=== PATIENT | female | born 1985 | race Caucasian/White ===

== ENCOUNTER 2023-01-20 08:00 | Inpatient (IN) | payer BC ==
[2023-01-20 10:06] VITALS: BMI 45.4
[2023-01-23] MEDS ORDERED: LACTATED RINGERS 1,000 ML IV ONE (08:01)
[2023-01-23] MEDS ORDERED: ceFAZolin 3 GM in SODIUM CHLORIDE 0.9% 100 ML IVPB ONE (08:01)
[2023-01-23] MEDS ORDERED: OXYTOCIN 10 UNIT/ML 1 ML VIAL IM PRN (08:01)
[2023-01-23] MEDS ORDERED: CARBOPROST TROMETHAMINE 250 MCG/ML 1 ML AMP IM PRN (08:01)
[2023-01-23] MEDS ORDERED: miSOPROStoL 200 MCG TAB PO PRN (08:01)
[2023-01-23] MEDS ORDERED: TRANEXAMIC 1,000 MG/100ML-NACL 1,000 MG in EMPTY BAG 1 BAG IV PRN (08:01)
[2023-01-23] MEDS ORDERED: METHYLERGONOVINE 0.2 MG/ML 1 ML AMP IM PRN (08:01)
[2023-01-23] MEDS ORDERED: CITRIC ACID-SODIUM CITRATE 15 ML CUP PO ONE (08:01)
[2023-01-23 08:51] LABS: Basophils % (A) 0 %; Eosinophils # (A) 0.2 k/uL (0-0.7); Eosinophils % (A) 2 %; HCT 43.3 % (34.0-46.0); HGB 14.9 gm/dL (11.4-16.0); Lymphocytes # (A) 2.6 k/uL (1.0-4.8); Lymphocytes % (A) 24 %; MCH 30.7 pg (25.0-35.0); MCHC 34.3 g/dL (31.0-37.0); MCV 89.4 fL (80.0-100.0); Mean Platelet Volume 8.4; Monocytes # (A) 0.6 k/uL (0-1.0); Monocytes % (A) 5 %; Neutrophils # (A) 7.2 k/uL (1.3-7.7); Neutrophils % (A) 67 %; Platelet Count 234 k/uL (150-450); RBC 4.84 m/uL (3.80-5.40); RDW 14.6 % (11.5-15.5); WBC 10.7 k/uL (3.8-10.6)
--- NOTE | 2023-01-23 09:26 | P.HPOB ---
History of Present Illness H&P Date: 01/23/23 Chief Complaint: Scheduled repeat section Ms. Hernandez is a 38 year old at 39 weeks and 3 days with EDC of 01/27/2023 (by LMP consistent with 7 week US) who presents to labor and delivery for repeat scheduled section. The has been complicated by advanced maternal age and excessive maternal weight gain of 47 pounds throughout the . At 32 weeks, the fetus was measuring in the 67%ile for growth. Obstetric history: 1 FTCS secondary to non-reassuring heart tones Maternal workup: Blood type A positive, antibody negative, rubella immune, VDRL non-reactive, HBsAg negative, HIV negative, HCV Ab negative, 1 hour GTT elevated, 3 hour GTT within normal limits, gonorrhea negative, chlamydia negative, GBS negative. Past medical history: endometriosis, infertility, hydrosalpinx Past surgical history: x1, laparoscopic left partial salpingectomy Past Medical History Past Medical History: No Reported History History of Any Multi-Drug Resistant Organisms: None Reported Past Surgical History: Section Additional Past Surgical History / Comment(s): REMOVAL LT FALLOPIAN TUBE AND CYST 2017 Past Anesthesia/Blood Transfusion Reactions: No Reported Reaction Past Psychological History: No Psychological Hx Reported Smoking Status: Never smoker Past Alcohol Use History: None Reported Past Drug Use History: None Reported - Past Family History Mother Family Medical History: No Reported History Medications and Allergies Home Medications Medication Instructions Recorded Confirmed Type Vit No.179/Iron/Folic 1 each PO DAILY 01/20/23 01/23/23 History [ Tablet] Allergies Allergy/AdvReac Type Severity Reaction Status Date / Time No Known Allergies Allergy Verified 01/23/23 08:00 Exam Vital Signs Temp Pulse Resp BP Pulse Ox 01/23/23 08:00 97.4 F L 97 16 139/79 97 Intake and Output 01/22/23 01/23/23 01/23/23 22:59 06:59 14:59 Other: Weight 123.377 kg Focused physical exam is performed. This is a in no apparent distress. Breathing is non-labored. Abdomen is gravid and non-tender. Extremities are non- tender and non-edematous. heart tones are reactive and reassuring on NST. Results Result Diagrams: 01/23/23 08:15 Abnormal Lab Results - Last 24 Hours (Table) 01/23/23 Range/Units 08:15 WBC 10.7 H (3.8-10.6) k/uL Assessment and Plan Assessment: 38 year old at 39 weeks and 3 days presenting for scheduled repeat section Plan: Admit, NPO, mIVF, IV pre-surgical antibiotics, protocol. Time with Patient: Less than 30
[2023-01-23] MEDS: LACTATED RINGERS 1,000 ML IV SCH ×4 (09:46→20:38)
[2023-01-23] MEDS ORDERED: MORPHINE SULFATE (PF) 0.3 MG/0.3 ML SYR ONE (10:00)
[2023-01-23] MEDS ORDERED: OXYTOCIN 30 UNITS/500 ML NS BAG IV ONE (10:00)
[2023-01-23] MEDS ORDERED: ONDANSETRON 4 MG/2 ML VIAL ONE (10:00)
[2023-01-23] MEDS ORDERED: KETOROLAC 30 MG/ML 1 ML VIAL ONE (10:00)
[2023-01-23] MEDS ORDERED: ePHEDrine 50 MG/ML 1 ML VIAL ONE (10:00)
[2023-01-23] MEDS ORDERED: HYDROmorphone 0.5 MG/0.5 ML SYRINGE IVP PRN (10:42)
[2023-01-23] MEDS ORDERED: diphenhydrAMINE 50 MG/ML 1 ML VIAL IVP PRN ×3 (10:42→11:25)
[2023-01-23] MEDS ORDERED: ONDANSETRON 4 MG/2 ML VIAL IVP PRN ×2 (10:42→11:25)
[2023-01-23] MEDS ORDERED: KETOROLAC 15 MG/ML 1 ML VIAL IVP PRN (10:42)
[2023-01-23] MEDS ORDERED: NALOXONE 0.4 MG/ML 1 ML VIAL IV PRN ×2 (10:42→11:25)
--- NOTE | 2023-01-23 11:24 | P.OP ---
Date of Procedure: 01/23/23 Preoperative Diagnosis: 1. 39 week IUP 2. History of prior section 3. No desire for TOLAC 4. Advanced Maternal Age 5. Short interval 6. Excessive Maternal Weight Gain Postoperative Diagnosis: Same Procedure(s) Performed: Repeat Lower Transverse Section Implants: None Anesthesia: spinal Surgeon: Lissette Quinn Metal Polisher And Buffer Apprentice #1: Deepali Bui Estimated Blood Loss (ml): 380 IV fluids (ml): 600 Urine output (ml): 200 Pathology: none sent Condition: stable Disposition: floor Indications for Procedure: This is a 38 year old at 39 weeks and 3 days who presents for scheduled repeat section. The risks, benefits, and alternatives to section were discussed with the patient including risk of bleeding, infection, damage to surrounding structures including bladder/bowels/ureters, and post- operative VTE. The patient understands these risks and desires to proceed with section. Operative Findings: Colorless amniotic fluid. Viable female in right occiput transverse presentation. Weight 3510 grams. Apgars 8 and 9 at 1 and 5 minutes, respectively. Normal uterus, fallopian tubes, and ovaries. Description of Procedure: The patient was taken to the operating room where spinal anesthesia was found to be adequate. 2 grams of Ancef were given for infection prophylaxis. She was prepared and draped in the dorsal supine position with a leftward tilt. A Pfannenstiel skin incision was made with the scalpel. The incision was carried down to the fascia with a bovie. The fascia was incised and extended laterally with Munoz scissors. The superior aspect of the fascia was grasped with Jacob clamps. The underlying rectus muscle was dissected off sharply with Munoz scissors. In a similar fashion, the inferior aspect of the fascia was elevated with Jacob clamps and the rectus muscle and pyramidalis were dissected off. Excellent hemostasis was achieved with the bovie. The rectus muscle was in the midline down to the level of the pubic symphysis. Pre- peritoneal fatty tissue was bluntly dissected to expose the peritoneum. The peritoneum was found to be free of adherent bowel and entered sharply with Munoz scissors. The peritoneal incision was extended superiorly and inferiorly to the bladder reflection with good visualization of the bladder. The bladder blade was inserted and vesicouterine peritoneum was identified. Intraabdominal survey revealed scant, clear peritoneal fluid and the thinned-out lower uterine segment. The vesicouterine peritoneum was opened with scissors and the bladder flap was developed. The bladder blade was repositioned to keep the bladder out of the operative field. The lower uterine segment was incised with a scalpel. The amniotic sac was ruptured with an Allis clamp and clear fluid was noted. The uterine incision was extended bluntly with lateral and upward traction. The fetus was in right occiput transverse position. The head was elevated out of the pelvis with special attention paid to avoid using the uterine incision as a fulcrum. Gentle fundal pressure was applied once the head was brought into the incision. The infant was delivered with no difficulty. The mouth and nose were suctioned with a bulb. The cord was clamped and cut. was noted to be spontaneously crying. The was handed off to the bar manager. IV oxytocin was initiated to facilitate uterine contractions. The placenta was delivered intact with manual massage of uterine fundus. The uterus was then exteriorized and the inside of the uterus was gently wiped with a lap sponge to assure complete removal of placental membranes. The uterine incision was closed with a 0-Polysorb suture in a running locked fashion. A second imbricating layer of 0- Polysorb was placed along the incision. The ovaries and tubes were found to be normal. The uterus, tubes, and ovaries were then gently returned to the abdominal cavity. The blood clots and fluid were wiped out of the abdomen and pelvis with moist laparotomy sponges. The pelvis was copiously suction irrigated.The uterine incision was reinspected and excellent hemostasis was noted. The fascial layer was closed with a 0-Vicryl suture. The subcutaneous tissue was reapproximated with 2-0 Plain Gut. The skin was closed with 4-0 Monocryl in a subcuticular fashion. The patient tolerated the procedure well. All the counts were correct times two. The patient was taken to the recovery room in a stable condition.
[2023-01-23] MEDS ORDERED: SIMETHICONE 80 MG CHEWABLE PO PRN (11:25)
[2023-01-23] MEDS ORDERED: diphenhydrAMINE 25 MG CAP PO PRN (11:25)
[2023-01-23] MEDS ORDERED: ZOLPIDEM 5 MG TAB PO PRN (11:25)
[2023-01-23] MEDS ORDERED: diphenhydrAMINE 50 MG CAP PO PRN (11:25)
[2023-01-23] MEDS ORDERED: LANOLIN CREAM 5 GM TUBE TOPICAL PRN (11:25)
[2023-01-23] MEDS: ACETAMINOPHEN TAB 500 MG TAB PO SCH (16:50)
[2023-01-23] MEDS: METOCLOPRAMIDE 5 MG/ML 2 ML VIAL IVP PRN (18:47)
[2023-01-23] MEDS: KETOROLAC 15 MG/ML 1 ML VIAL IVP SCH (18:47)
[2023-01-23] MEDS: SENNOSIDES-DOCUSATE SODIUM 1 EACH TAB PO SCH (20:38)
[2023-01-23] MEDS: IBUPROFEN 600 MG TAB PO SCH (22:37)
[2023-01-24] MEDS: KETOROLAC 15 MG/ML 1 ML VIAL IVP SCH ×3 (00:13→12:00)
[2023-01-24] MEDS: METOCLOPRAMIDE 5 MG/ML 2 ML VIAL IVP PRN (01:29)
[2023-01-24] MEDS: ACETAMINOPHEN TAB 500 MG TAB PO SCH ×5 (01:39→20:00)
[2023-01-24] MEDS: LACTATED RINGERS 1,000 ML IV SCH ×5 (01:39→17:19)
[2023-01-24 07:19] LABS: Basophils % (A) 0 %; Eosinophils # (A) 0.2 k/uL (0-0.7); Eosinophils % (A) 2 %; HCT 45.5 % (34.0-46.0); HGB 14.9 gm/dL (11.4-16.0); Lymphocytes % (A) 27 %; MCH 29.8 pg (25.0-35.0); MCHC 32.7 g/dL (31.0-37.0); MCV 91.1 fL (80.0-100.0); Mean Platelet Volume 8.2; Monocytes # (A) 0.7 k/uL (0-1.0); Monocytes % (A) 6 %; Neutrophils # (A) 6.7 k/uL (1.3-7.7); Neutrophils % (A) 62 %; Platelet Count 238 k/uL (150-450); RBC 4.99 m/uL (3.80-5.40); RDW 14.6 % (11.5-15.5); WBC 10.8 k/uL (3.8-10.6)
--- NOTE | 2023-01-24 08:27 | P.PNOBGPC ---
Subjective - Subjective Principal diagnosis: s/p repeat section Interval history: The patient is doing well this morning and had no acute events overnight. She has no complaints this morning. She reports minimal lochia, passing flatus, voiding without difficulty, ambulating, and eating/drinking without nausea or vomiting. She is her without difficulty. She denies chest pain, shortness of breathing, fevers, or chills overnight. She denies pain or swelling in the legs. Patient reports: Reports appetite normal, Reports voiding normally, Reports pain well controlled, Reports ambulating normally [place]: doing well Objective - Vital Signs Latest vital signs: Vital Signs Temp Pulse Resp BP Pulse Ox 01/24/23 07:00 16 98 01/24/23 05:00 16 01/24/23 04:00 97.9 F 66 16 108/73 95 01/24/23 03:00 16 97 01/24/23 01:00 16 97 01/24/23 00:00 98.1 F 67 16 107/71 97 01/23/23 23:00 16 96 01/23/23 20:36 16 01/23/23 20:00 97.9 F 61 16 94/68 96 01/23/23 19:00 16 01/23/23 17:00 16 01/23/23 15:46 98.1 F 66 16 116/67 96 01/23/23 15:41 96 01/23/23 15:00 16 01/23/23 13:42 16 01/23/23 13:06 97.5 F L 63 16 92/55 99 01/23/23 12:36 69 16 96/50 99 01/23/23 12:06 73 16 105/54 97 01/23/23 11:40 16 96 01/23/23 11:36 70 16 104/51 96 01/23/23 11:21 71 16 100/49 95 01/23/23 11:06 97.9 F 68 16 103/57 96 01/23/23 10:42 16 96 Intake and Output 01/23/23 01/24/23 01/24/23 22:59 06:59 14:59 Output Total 700 300 200 Balance -700 -300 -200 Output: Urine 400 300 200 Emesis 300 Other: # Voids 1 1 - Exam Extremities: Present: normal Abdomen: Present: normal appearance, soft Incision: Present: normal, dry, intact Uterus: Present: normal, firm - Labs Labs: Abnormal Lab Results - Last 24 Hours (Table) 01/23/23 01/24/23 Range/Units 08:15 07:03 WBC 10.7 H 10.8 H (3.8-10.6) k/uL Assessment and Plan Assessment: 38 year old now POD#1 s/p repeat section Plan: 1. Postoperative. Patient meeting all post-operative milestones appropriately. 2. Viable female . Doing well at bedside. Dispo: Anticipate discharge home tomorrow morning.
--- NOTE | 2023-01-24 08:50 | P.PN ---
Progress Note - Text Progress Note Date: 01/24/23 Patient seen sitting on the bedside and doing well. She is POD #1 C/S under SAB with intrathecal duramorph for post-operative pain management. She reports nausea/vomitting last night but that is resolved and she is without complaint. Patient denies back pain, fever/chills, headache and itching. Will follow up as indicated.
--- NOTE | 2023-01-24 08:54 | P.PN ---
Progress Note - Text Progress Note Date: 01/24/23 Postoperative day 1 status post section under spinal anesthesia and in trathecal Duramorph for postoperative analgesia.The patient is doing well, there is mild generalized skin itching. There are no other anesthesia related complications. The patient denies any paresthesia or weakness in the lower extremities. Patient denies any headache. Further management as per the patient primary team.
[2023-01-24] MEDS: SENNOSIDES-DOCUSATE SODIUM 1 EACH TAB PO SCH (09:40)
[2023-01-24] MEDS: IBUPROFEN 600 MG TAB PO SCH ×2 (09:41→16:02)
[2023-01-25] MEDS: IBUPROFEN 600 MG TAB PO SCH ×3 (02:45→04:11)
[2023-01-25] MEDS: SENNOSIDES-DOCUSATE SODIUM 1 EACH TAB PO SCH ×2 (02:45→08:02)
[2023-01-25] MEDS: ACETAMINOPHEN TAB 500 MG TAB PO SCH ×2 (04:31→10:46)
[2023-01-25 08:14] VITALS: BP 120/80; PULSE 88; RESP 15; TEMP 97.9
--- NOTE | 2023-01-25 08:20 | P.DS ---
Providers Date of admission: 01/23/23 07:40 Expected date of discharge: 01/25/23 Attending physician: Lissette Quinn MD Primary care physician: Stated None Hospital Course: This is a 38-year-old now post op day #2 status post a repeat section who is doing well this morning and desires discharge home. The patient is doing well this morning and had no acute events overnight. She has no complaints this morning. She reports minimal lochia, passing flatus, voiding without difficulty, ambulating, and eating/drinking without nausea or vomiting. doing well at bedside, is formula feeding. She denies chest pain, shortness of breathing, fevers, or chills overnight. She denies pain or swelling in the legs. Postoperative restrictions are reviewed with the patient including pelvic rest for 6 weeks, no lifting heavier than 15 pounds for 6 weeks. The patient is encouraged to call the office if she experiences any heavy bleeding, foul-smelling discharge, breast complaints, or any if she has any other concerns. She will follow up in the office with in 2 weeks for postoperative exam. She declines oxycodone prescription at discharge and will go home with Motrin and Tylenol. All questions are answered. Assessment: 38 year old POD#2 s/p repeat section Patient Condition at Discharge: Good Plan - Discharge Summary Discharge Rx Participant: Yes New Discharge Prescriptions: No Action Vit No.179/Iron/Folic [ Tablet] 1 each PO DAILY Discharge Medication List Vit No.179/Iron/Folic [ Tablet] 1 each PO DAILY 01/20/23 [History]
== END 2023-01-25 09:30 | disposition home or self-care (01) | DRG 788 ==
LOC: 4FBP 01-23 07:40
PROVIDERS: ADMIT Obstetrics & Gynecology; ATTEND Obstetrics & Gynecology
PROC: 10D00Z1 Extraction of Products of Conception, Low, Open Approach (ICD-10-PCS; principal; 2023-01-23 10:00)
DX: O34.211 Maternal care for low transverse scar from previous cesarean delivery (principal); Z37.0 Single live birth; Z3A.39 39 weeks gestation of pregnancy; O26.03 Excessive weight gain in pregnancy, third trimester; O76 Abnormality in fetal heart rate and rhythm complicating labor and delivery; N80.9 Endometriosis, unspecified; O32.2XX0 Maternal care for transverse and oblique lie, not applicable or unspecified; N97.9 Female infertility, unspecified; Z90.79 Acquired absence of other genital organ(s); Z87.42 Personal history of other diseases of the female genital tract
CPT/HCPCS: 85025; 86850; 86900; 86901